=== PATIENT | male | born 1985 | race Caucasian/White ===

== ENCOUNTER 2017-03-10 13:34 | Outpatient (CLI) | payer OTHER ==
--- NOTE | 2017-03-10 15:20 | MRI Report ---
EXAM: LEFT WRIST MRI WITHOUT CONTRAST EXAM DATE: 03/10/2017 02:23 PM. CLINICAL HISTORY: Left wrist pain for one week. Decreased range of motion. Pain radiates to the dorsa l and distal metacarpals and forearm. 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 COMPARISON: None. TECHNIQUE: Multiplanar, multisequence T1-weighted and fluid-sensitive sequences of the wrist without contrast. Other: None. FINDINGS: Bones: No fractures or subluxations. No marrow edema. No bone lesions. Cartilage: The articular cartilage is unremarkable. The triangular fibrocartilage complex is unremark able. Ligaments: The scapholunate and lunotriquetral ligaments are intact. The visualized other intrinsic, extrinsic and collateral ligaments are unremarkable. Tendons: The extensor carpi ulnaris tendon is mildly thickened and edematous and there is a small anaya unt of fluid surrounding it at the ulnar styloid region. The other visualized flexor and extensor ten dons are unremarkable. Musculature: No edema or fatty atrophy. Other: The contents of the carpal tunnel, including the median nerve, are unremarkable. Guyons canal is unremarkable. No ganglion cysts. No joint effusions. The subcutaneous tissues are unremarkable. IMPRESSION: Moderate tendinosis of the extensor carpi ulnaris tendon. [facility] MUSCULOSKELETAL RADIOLOGY SECTION Referring Provider Line: [phone] SITE ID: [id number]
== END 2017-03-10 13:35 | disposition home or self-care (01) ==
LOC: DI 13:34
PROVIDERS: ATTEND Family Medicine
DX: M67.932 Unspecified disorder of synovium and tendon, left forearm (principal)

== ENCOUNTER 2021-06-24 08:02 | Outpatient (CLI) | payer OTHER ==
--- NOTE | 2021-06-24 17:14 | MRI Report ---
PROCEDURE: Wrist LT W/O INDICATIONS: LEFT WRIST LIGAMENT DISORDER TECHNIQUE: Noncontrast coronal proton density fast spin echo and T2 fast spin echo with fat saturation; coronal 3-D gradient echo, axial T1 spin echo and T2 fast spin echo with fat saturation, sagittal T1 spin ech o through the wrist. COMPARISON: Left wrist MRI dated 03/10/2017. FINDINGS: Image quality: Excellent. Bones and cartilage: The carpal bones are normally aligned. No bone marrow contusions or fractures. No evidence for avascular necrosis. Overlying cartilage surfaces appear normal. Carpal ligaments: The scapholunate and lunotriquetral ligaments appear intact. There is suggestion o f low-grade sprain/intrasubstance partial thickness tear involving radioscaphocapitate ligament. On s agittal images, the pisohamate ligament appears intact. Triangular fibrocartilage complex: The triangular fibrocartilage appears intact. The adjacent menis alex homolog appears normal in the absence of intra-articular contrast. Mildly thickened extensor carp i ulnaris tendon at the level of ulnar styloid tip is seen with intrasubstance T2 hyperintense signal . Tendons and soft tissues: The carpal tunnel structures appear normal, including the median nerve. T he ulnar nerve appears normal within Guyon's canal. All six extensor tendon compartments demonstrate normal morphology, without pathologic tendon sheath fluid. No soft tissue ganglion cysts. IMPRESSION: 1. Suggestion of low-grade sprain/intrasubstance partial thickness tear involving radioscaphocapitate ligament. Scapholunate and lunotriquetral ligaments are intact. 2. Mild tendinosis/low-grade intrasubstance partial thickness tear involving extensor carpi ulnaris t endon at the level of ulnar styloid. 3. No marrow edema. No fracture or dislocation. No evidence of osteonecrosis. 4. Rest of the tendons and ligaments are intact. Triangular fibrocartilage complex is intact. Reviewed by: Pato Adams MD on 06/24/2021 5:13 PM PDT Approved by: Pato Adams MD on 06/24/2021 5:13 PM PDT Station ID: [id number]
== END 2021-06-24 08:03 | disposition home or self-care (01) ==
LOC: DI 08:02
DX: M24.232 Disorder of ligament, left wrist (principal)

== ENCOUNTER 2022-10-01 12:41 | Outpatient (CLI) | payer OTHER ==
--- NOTE | 2022-10-01 16:10 | MRI Report ---
PROCEDURE: KNEE WO - RT INDICATIONS: INJURY TO LOWER LEG TECHNIQUE: Noncontrast sagittal PD fast spin echo and T2 fast spin echo with fat saturation, sagittal 3-D gradie nt sequence with fat saturation; coronal T1 spin echo and PD fast spin echo with fat saturation, and axial PD fast spin echo with fat saturation through the knee. COMPARISON: None. FINDINGS: Image quality: Excellent. Menisci: There is intrasubstance degeneration in the posterior horn the medial meniscus. The lateral meniscus demonstrates normal morphology and internal signal. The meniscal root ligaments appear inta ct. Cruciate ligaments: The anterior and posterior cruciate ligaments appear intact. There is mucoid de generation of ACL. Medial structures: There is grade 1 sprain of the deep layer of the medial collateral ligament and sp rain of the semimembranosus tendon insertions. There is no meniscocapsular junction. Visualized port ions of the pes anserinus tendons appear normal. No abnormal bursal fluid. Lateral structures: There is partial tear of the distal lateral collateral ligament and partial tear of the biceps femoris tendon. There is partial tear of the popliteus tendon the musculotendinous junc tion with associated mild muscle strain.. Iliotibial band appears normal. Anterior structures: The quadriceps and patellar tendons appear intact. Patellar alignment is romy l. No femoral trochlear dysplasia or ventral trochlear prominence. No edema in the infrapatellar fa t pad. Bones and cartilage: No fractures. There are mild contusions in the posterior aspect of the medial and lateral tibial plateaus. There is is a contusion of the fibular head. Mild tricompartmental carti yamil fibrillation with preserved cartilage thickness. Joint space: There is physiologic knee joint fluid. No Mcmillan's cyst. Normal appearing synovial pli are incidentally noted. IMPRESSION: 1. Grade 1 sprain of MCL and semimembranosus tendon insertions. 2. Partial tear of LCL and the biceps femoris tendon. 3. Partial tear of the popliteus tendon at the musculotendinous junction with associated mild muscle strain. 4. Bone marrow contusions involving the posterior aspect of the medial and lateral femoral condyles. There is also contusion of the fibular head. 5. Mild tricompartmental cartilage fibrillation with preserved cartilage thickness. Reviewed by: Emily Richards MD on 10/01/2022 4:09 PM PDT Approved by: Emily Richards MD on 10/01/2022 4:09 PM PDT Station ID: [id number]
== END 2022-10-01 12:42 | disposition home or self-care (01) ==
LOC: DI 12:41
PROVIDERS: ATTEND Internal Medicine
DX: S83.411A Sprain of medial collateral ligament of right knee, initial encounter (principal); S83.421A Sprain of lateral collateral ligament of right knee, initial encounter; S86.811A Strain of other muscle(s) and tendon(s) at lower leg level, right leg, initial encounter; M23.91 Unspecified internal derangement of right knee; S70.11XA Contusion of right thigh, initial encounter